=== PATIENT | female | born 1965 | race Caucasian/White ===

== ENCOUNTER 2021-12-04 19:04 | Emergency (ER) | payer BC ==
[~2021-12-04] VITALS: Ht 165.1 cm; Wt 63.6 kg
[2021-12-04 19:10] VITALS: BP 159/69
[2021-12-04] MEDS ORDERED: NAPROXEN 500 MG TABLET PO STA (19:57)
[2021-12-04] MEDS ORDERED: HYDROcodone/APAP 5/325MG 1 TAB TABLET PO ONE (20:00)
[2021-12-04] MEDS ORDERED: diazePAM 5 MG TABLET PO ONE (20:00)
[2021-12-04 20:16] LABS: BACTERIA,URINE 0 /HPF (0-FEW); WBC,URINE 0 /HPF (0-4)
[2021-12-04] MEDS ORDERED: HYDR-2761 PO ×2 (20:24→20:40)
[2021-12-04] MEDS ORDERED: METH4TAB2 PO ×2 (20:24→20:44)
[2021-12-04] MEDS ORDERED: CYCL10TA19 PO ×2 (20:24→20:44)
[2021-12-04] MEDS ORDERED: NAPR-514 PO ×2 (20:24→20:44)
--- NOTE | 2021-12-04 20:24 | PHYS DOC ---
Past Medical History Past Surgical History: Appendectomy, General Adult EDM: Chief Complaint: BACK PAIN OR INJURY HPI: HPI: Patient is a 55 year old female with history of low back pain presenting today complaining of 10 out of 10 right low back pain radiating to the right lower extremity. Patient states symptoms have been going on for 2 days. Describes the pain as sharp and constant worse on ambulation. Denies any injuries. Denies any loss of bowel/bladder function, denies any numbness or tingling to bilateral lower extremities. She states she has tried lidocaine patches and [id number] remedies with no relief. Review of Systems: Review of Systems: Constitutional: Denies fever or chills. [] GI: Denies abdominal pain, nausea, vomiting, bloody stools or diarrhea. [] : Denies dysuria. [] Musculoskeletal: Reports right low back pain radiating to the right lower extremity Integument: Denies rash. [] Psychiatric: Denies depression or anxiety. [] Heart Score: C/O Chest Pain: N/A Risk Factors: Risk Factors: DM, Current or recent (<one month) smoker, HTN, HLP, family history of CAD, obesity. Risk Scores: Score 0 - 3: 2.5% MACE over next 6 weeks - Discharge Home Score 4 - 6: 20.3% MACE over next 6 weeks - Admit for Clinical Observation Score 7 - 10: 72.7% MACE over next 6 weeks - Early Invasive Strategies Current Medications: Current Medications Medications (Trade) Dose Ordered Sig/[facility] Start Time Stop Time Status Last Admin Dose Admin Acetaminophen/ Hydrocodone Bitart (Lortab 5/325) 2 tab 1X ONCE 12/04/21 20:00 12/04/21 20:03 DC 12/04/21 20:11 2 TAB Diazepam (Valium) 5 mg 1X ONCE 12/04/21 20:00 12/04/21 20:03 DC 12/04/21 20:12 5 MG Naproxen (Naprosyn) 500 mg 1X STAT 12/04/21 19:57 12/04/21 20:03 DC 12/04/21 20:11 500 MG Allergies: Allergies: Allergies Coded Allergies Type Severity Reaction Last Updated Verified No Known Drug Allergies 12/04/21 No Physical Exam: PE: Constitutional: Well developed, well nourished, no acute distress, non-toxic appearance. [] Abdomen: Bowel sounds normal, soft, no tenderness, no masses, no pulsatile masses. [] Skin: Warm, dry, no erythema, no rash. [] Back: Lidocaine patches noted mid and low back, diffuse paraspinal muscle tenderness to the right lumbar spine, no midline lumbar spine tenderness, no CVA tenderness. [] Extremities: No tenderness, no cyanosis, no clubbing, ROM intact, no edema. [] Neurologic: Alert and oriented X 3, normal motor function, normal sensory function, no focal deficits noted. [] Psychologic: Affect normal, judgement normal, mood normal. [] Current Patient Data: Labs: Laboratory Tests Test 12/04/21 19:45 Urine Collection Type Unknown Urine Color (Auto) Light yellow Urine Turbidity Clear Urine pH (Auto) 5.5 (<5.0-8.0) Urine Specific [place] 1.030 (1.000-1.030) Urine Protein (Auto) Negative mg/dL (Negative) Urine Glucose (Auto)(UA) Negative mg/dL (Negative) Urine Ketones (Auto) Negative mg/dL (Negative) Urine Blood (Auto) Negative (Negative) Urine Nitrite Negative (Negative) Urine Bilirubin (Auto) Negative (Negative) Urine Urobilinogen (Auto) Normal mg/dL (Normal) Urine Leukocyte Esterase (Auto) Negative (Negative) Urine RBC 1-2 /HPF (0-2) Urine WBC 0 /HPF (0-4) Urine Squamous Epithelial Cells Few /LPF Urine Bacteria 0 /HPF (0-FEW) Urine Mucus Slight /LPF Vital Signs: Vital Signs Date Time Temp Pulse Resp B/P (MAP) Pulse Ox O2 Delivery O2 Flow Rate FiO2 12/04/21 20:11 18 99 Room Air 12/04/21 19:10 98.1 106 159/69 (99) 98.1 EKG: EKG: [] Radiology/Procedures: Radiology/Procedures: [] Course & Med Decision Making: Course & Med Decision Making Pertinent Labs and Imaging studies reviewed. (See chart for details) This a 55-year-old male patient with history of chronic low back pain presenting to the ED today complaining of low back pain, no known injury, no cauda equina syndrome symptoms. UA is negative. Discharge to home with a short supply of hydrocodone, Flexeril and naproxen. Follow-up with PCP in 1 week Wilmar Disclaimer: Wilmar Disclaimer: This electronic medical record was generated, in whole or in part, using a voice recognition dictation system. Departure Departure Impression: Primary Impression: Low back pain Qualified Codes: M54.41 - Lumbago with sciatica, right side Disposition: HOME / SELF CARE / HOMELESS Condition: STABLE Patient Instructions: Back Pain, Adult Additional Instructions: You were evaluated in the emergency room for back pain, your urine was negative for any infection. Take the prescribed medications as ordered. Please follow- up with your doctor in 1 to 2 weeks. Consider using a heating pad to your low back as needed for pain Scripts Methylprednisolone (MEDROL) 4 Mg Tab.ds.pk 1 PKG PO UD, #1 PKG Prov: BENGabrielRONALD Neha INPATIENT NURSING AIDE 12/04/21 Cyclobenzaprine Hcl (CYCLOBENZAPRINE HCL) 10 Mg Tablet 1 TAB PO TID, #30 TAB Prov: NICKRONALD Neha INPATIENT NURSING AIDE 12/04/21 Naproxen (NAPROXEN) 500 Mg Tablet 1 TAB PO BID for pain, #14 TAB 0 Refills Prov: NICKRONALD Neha INPATIENT NURSING AIDE 12/04/21 Hydrocodone Bit/Acetaminophen (HYDROCODONE-APAP 5-325 ) 1 Tab Tablet 1 TAB PO PRN Q6HRS PRN for PAIN, #20 TAB 0 Refills Prov: RONALD ROMERO INPATIENT NURSING AIDE 12/04/21 RONALD ROMERO INPATIENT NURSING AIDE Dec 04, 2021 20:24
== END 2021-12-04 20:53 | disposition home or self-care (01) ==
LOC: ER 19:04
DX: M54.41 Lumbago with sciatica, right side (principal); Z90.89 Acquired absence of other organs
CPT/HCPCS: 81001; 99284